=== PATIENT | male | born 1960 | race Caucasian/White ===

== ENCOUNTER 2018-08-30 13:00 | Emergency (ER) | payer MEDICAID ==
--- NOTE | 2018-08-30 14:35 | EDPHY ---
H & P Time Seen by Provider: 08/30/18 14:28 HPI/ROS: CHIEF COMPLAINT: Alcohol intoxication HISTORY OF PRESENT ILLNESS: 58-year-old male presents with alcohol intoxication. He was at work and his coworkers noted that he appeared to be intoxicated. They called 911. He admits to a pint of gin today. He denies medication overdose or other ingestion. He feels intoxicated, but has not injured himself and is not vomiting. REVIEW OF SYSTEMS: complete 10 point ROS reviewed and is negative except for the noted elements in the HPI - Medical/Surgical History Hx Asthma: No Hx Chronic Respiratory Disease: No Hx Diabetes: No Hx Cardiac Disease: No Hx Renal Disease: No Hx Cirrhosis: No Hx Alcoholism: No Hx HIV/AIDS: No Hx Splenectomy or Spleen Trauma: No Other PMH: BILAT HERNIA REPAIR. 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 FUSION/migraines - Social History Smoking Status: Former smoker - Physical Exam Exam: General Appearance: Alert, slurred speech, cooperative Eyes: Pupils dilated, no nystagmus ENT, Mouth: Mucous membranes moist, no trauma Neck: normal inspection, no tenderness Respiratory: Lungs are clear to auscultation Cardiovascular: Regular rate and rhythm Gastrointestinal: Abdomen is soft and nontender, no masses, bowel sounds normal Neurological: Drowsy, non-focal exam, unsteady gait Skin: Warm and dry, no visible wounds Extremities: normal inspection Psychiatric: Mood and affect normal Constitutional: Initial Vital Signs Temperature (C) 36.7 C 08/30/18 13:05 Heart Rate 92 08/30/18 13:05 Respiratory Rate 16 08/30/18 13:05 Blood Pressure 130/70 H 08/30/18 13:05 O2 Sat (%) 94 08/30/18 13:05 O2 Delivery Mode Room Air O2 (L/minute) 3 Allergies/Adverse Reactions: tetracycline [Tetracycline] Allergy (Intermediate, Verified 03/26/15 15:27) BEE'S Allergy (Severe, Uncoded 03/26/15 15:27) Home Medications: Medication Instructions Recorded GABAPENTIN 02/08/15 [place] 10/325 (RX) 02/08/15 predniSONE 10 mg PO DAILY #21 tab 03/26/15 Medical Decision Making ED Course/Re-evaluation: This patient presents with alcohol intoxication. Will observe until he is able to ambulate with a steady gait. On discharge, the patient was able to ambulate with a steady gait and speech was clear. - Data Points Laboratory Results: Laboratory Results 08/30/18 13:12 08/30/18 13:12 08/30/18 08/30/18 13:12 13:12 WBC 5.66 10^3/uL 10^3/uL (3.80-9.50) RBC 5.03 10^6/uL 10^6/uL (4.40-6.38) Hgb 15.7 g/dL g/dL (13.7-17.5) Hct 46.8 % % (40.0-51.0) MCV 93.0 fL fL (81.5-99.8) MCH 31.2 pg pg (27.9-34.1) MCHC 33.5 g/dL g/dL (32.4-36.7) RDW 13.6 % % (11.5-15.2) Plt Count 212 10^3/uL 10^3/uL (150-400) MPV 10.0 fL fL (8.7-11.7) Neut % (Auto) 56.4 % % (39.3-74.2) Lymph % (Auto) 33.4 % % (15.0-45.0) [place] % (Auto) 8.0 % % (4.5-13.0) Eos % (Auto) 1.1 % % (0.6-7.6) Baso % (Auto) 0.7 % % (0.3-1.7) Nucleat RBC Rel Count 0.0 % % (0.0-0.2) Absolute Neuts (auto) 3.20 10^3/uL 10^3/uL (1.70-6.50) Absolute Lymphs (auto) 1.89 10^3/uL 10^3/uL (1.00-3.00) Absolute Monos (auto) 0.45 10^3/uL 10^3/uL (0.30-0.80) Absolute Eos (auto) 0.06 10^3/uL 10^3/uL (0.03-0.40) Absolute Basos (auto) 0.04 10^3/uL 10^3/uL (0.02-0.10) Absolute Nucleated RBC 0.00 10^3/uL 10^3/uL (0-0.01) Immature Gran % 0.4 % % (0.0-1.1) Immature Gran # 0.02 10^3/uL 10^3/uL (0.00-0.10) Sodium 145 mEq/L mEq/L (135-145) Potassium 4.1 mEq/L mEq/L (3.5-5.2) Chloride 108 mEq/L mEq/L (97-110) Carbon Dioxide 26 mEq/l mEq/l (22-31) Anion Gap 11 mEq/L mEq/L (6-14) BUN 16 mg/dL mg/dL (7-23) Creatinine 1.1 mg/dL mg/dL (0.7-1.3) Estimated GFR > 60 Glucose 92 mg/dL mg/dL (70-100) Calcium 9.5 mg/dL mg/dL (8.5-10.4) Ethyl Alcohol 277 mg/dL H mg/dL (0-10) Departure - Departure Disposition: Home, Routine, Self-Care Clinical Impression: Alcohol intoxication Qualifiers: Complication of substance-induced condition: uncomplicated Qualified Code(s): F10.920 - Alcohol use, unspecified with intoxication, uncomplicated Condition: Good Instructions: Alcohol Intoxication (ED) Referrals: Norma Feliciano MD [Medical Doctor] - As per Instructions
[2018-08-30 14:56] LABS: PLATELET COUNT 212 10^3/uL (150-400)
[2018-08-30 16:39] VITALS: BP 102/58
== END 2018-08-30 17:30 | disposition home or self-care (01) ==
LOC: EDUNIT#
DX: F10.920 Alcohol use, unspecified with intoxication, uncomplicated (principal)
CPT/HCPCS: G0480